=== PATIENT | male | born 1980 | race Caucasian/White ===

== ENCOUNTER 2024-07-24 23:22 | Emergency (ER) | payer MEDICAID ==
[~2024-07-24] VITALS: Ht 167.6 cm; Wt 97.0 kg
[2024-07-24 23:31] VITALS: BP 132/54; PULSE 74; RESP 16; TEMP 98; O2SAT 98
[2024-07-25] MEDS: IBUPROFEN 600MG TABLET PO ONE (00:50)
== END 2024-07-25 02:25 | disposition home or self-care (01) ==
LOC: ER 23:22
DX: S29.9XXA Unspecified injury of thorax, initial encounter (principal); E03.9 Hypothyroidism, unspecified; G89.11 Acute pain due to trauma; X58.XXXA Exposure to other specified factors, initial encounter; Y93.89 Activity, other specified; Y92.89 Other specified places as the place of occurrence of the external cause; Y99.8 Other external cause status
CPT/HCPCS: 71045; 99283